=== PATIENT | female | born 1975 | race Caucasian/White ===

== ENCOUNTER 2021-12-06 22:54 | Emergency (ER) | payer OTHER ==
[~2021-12-06] VITALS: Ht 165.1 cm; Wt 70.9 kg
[2021-12-06 23:18] VITALS: BP 157/88
--- NOTE | 2021-12-06 23:32 | PHYS DOC ---
Past History Past Surgical History: Hysterectomy, Oophorectomy Additional Past Surgical Histo: heart cath 08 Alcohol Use: None Adult General Chief Complaint Chief Complaint: FINGER INJURY HPI HPI Patient left without being seen Allergies Allergies Allergies Coded Allergies Type Severity Reaction Last Updated Verified Fcchcom-[id number]-OjC Reductase Inhibitor Allergy Intermediate 12/06/21 Yes acyclovir Allergy Intermediate 12/06/21 Yes diphenhydramine Allergy Intermediate 12/06/21 Yes ketorolac Allergy Intermediate 12/06/21 Yes lisinopril Allergy Intermediate 12/06/21 Yes metoclopramide Allergy Intermediate 12/06/21 Yes metronidazole Allergy Intermediate 12/06/21 Yes omeprazole Allergy Intermediate 12/06/21 Yes promethazine Allergy Intermediate 12/06/21 Yes Current Patient Data Vital Signs Vital Signs Date Time Temp Pulse Resp B/P (MAP) Pulse Ox O2 Delivery O2 Flow Rate FiO2 12/06/21 23:18 98.0 74 20 157/88 (111) 97 Room Air EKG EKG [] Radiology/Procedures Radiology/Procedures [] Heart Score C/O Chest Pain: N/A Risk Factors: Risk Factors: DM, Current or recent (<one month) smoker, HTN, HLP, family history of CAD, obesity. Risk Scores: Risk Factors: DM, Current or recent (<one month) smoker, HTN, HLP, family history of CAD, obesity. Course & Med Decision Making Course & Med Decision Making Patient left without being seen [] Dragon Disclaimer Dragon Disclaimer This electronic medical record was generated, in whole or in part, using a voice recognition dictation system. Departure Departure: Disposition: 07 LEFT WITHOUT BEING SEEN Referrals: ANJU GAMBOA MD (PCP) BLAKE CARRANZA MD Dec 06, 2021 23:32
== END 2021-12-06 23:52 | disposition left against medical advice (07) ==
LOC: ER 22:54
DX: S69.91XA Unspecified injury of right wrist, hand and finger(s), initial encounter (principal); Z53.21 Procedure and treatment not carried out due to patient leaving prior to being seen by health care provider; X58.XXXA Exposure to other specified factors, initial encounter; Y93.89 Activity, other specified; Y92.89 Other specified places as the place of occurrence of the external cause; Y99.8 Other external cause status